=== PATIENT | male | born 1985 | race American Indian/Alaskan Native ===

== ENCOUNTER 2019-06-05 04:05 | Emergency (ER) | payer SELFPAY ==
[2019-06-05] MEDS ORDERED: ASPIRIN 325 MG TAB PO ONE (04:23)
[2019-06-05 05:03] LABS: Basophils # (Auto) 0.1 K/mm3 (0.0-0.1); Eosinophils # (Auto) 0.1 K/mm3 (0.0-0.4); Eosinophils % (Auto) 1.3 % (0.0-4.3); Lymphocytes # (Auto) 0.5 K/mm3 (1.2-5.4); Lymphocytes % (Auto) 8.7 % (13.4-35.0); Mean Corpuscular HGB Conc 36 % (32-34); Mean Corpuscular Volume 88 fl (84-94); Monocytes # (Auto) 0.9 K/mm3 (0.0-0.8); Monocytes % (Auto) 14.8 % (0.0-7.3); Platelet Count 228 K/mm3 (140-440); Red Blood Count 4.96 M/mm3 (3.65-5.03); Red Cell Distribution Width 13.2 % (13.2-15.2)
[2019-06-05 05:04] LABS: Hematocrit 43.4 % (35.5-45.6); Hemoglobin 15.6 gm/dl (11.8-15.2)
--- NOTE | 2019-06-05 05:20 | XRay Report ---
CHEST 1 VIEW INDICATION: Chest Pain. COMPARISON: FINDINGS: SUPPORT DEVICES: None. HEART / MEDIASTINUM: No significant abnormality. LUNGS / PLEURA: No significant pulmonary or pleural abnormality. No pneumothorax. ADDITIONAL FINDINGS: IMPRESSION: 1. No acute cardiopulmonary disease Signer Name: Benjamin Mckeon MD Signed: 06/05/2019 5:15 AM Workstation Name: [id number]
[2019-06-05 05:31] LABS: BUN/Creatinine Ratio 8; Blood Urea Nitrogen 9 mg/dL (9-20); Calcium 9.5 mg/dL (8.4-10.2); Hemolysis Index 6
[2019-06-05] MEDS ORDERED: ASPIRIN 325 MG TAB ONE (06:28)
[2019-06-05] MEDS ORDERED: FAMOTIDINE 20 MG/2 ML INJ IV ONE (07:13)
[2019-06-05] MEDS ORDERED: diphenhydrAMINE 50 MG/ML VIAL IV ONE (07:13)
[2019-06-05] MEDS ORDERED: SODIUM CHLORIDE 0.9% 1000 ML 2,000 ML IV ONE (07:13)
--- NOTE | 2019-06-05 07:15 | Emergency Department Report ---
ED General Adult HPI - General Chief complaint: Chest Pain Stated complaint: FOOD POISONING Time Seen by Provider: 06/05/19 06:08 Source: patient, RN notes reviewed Mode of arrival: Ambulatory Limitations: No Limitations - History of Present Illness Initial comments: During the history and physical examination, I am stereotype molder and escorted by Dinah Mathias, machine shop repair technician. The patient is a 33-year-old gentleman. He is not known to myself previously. He reports that he does not have a primary care doctor, and he also reports that he does not have any chronic medical conditions, and he denies tobacco and smoke product consumption. He presents to the ER with multiple complaints. His first complaint is diarrhea. It started 4 days ago. He describes his diarrhea as brown and red. In the past 24 hours, he has had 3 episodes of diarrhea. There is no fevers that he is aware of, no nausea, no vomiting, no abdominal pain. He recently returned from [facility]. To the best of his recollection, he did not encounter any sick people or sick contacts in this country, and he did not encounter anyone with any respiratory symptoms that he is aware of. He has not endorsed any hematemesis. His next complaint is chest pressure and pain. It started at 3:00 this morning. It is now resolved. It did not radiate to the back, arms or neck. There is no vomiting, diaphoresis, or shortness of breath. There is no endorsement of posterior leg pain and/or leg swelling. There is no recent aspirin consumption. There is no family history of heart dis ease or DVT, pulmonary embolism that he is aware of. He has a final complaint of right-sided ear fullness and discomfort. There is no tinnitus, there is no vertigo, there is no subjective change in auditory acuity. This has been going on for the past couple of days. -: days(s) Location: chest Severity scale (0 -10): 8 Quality: other Consistency: other Improves with: other Worsens with: other Associated Symptoms: other - Related Data Previous Rx's Medication Instructions Recorded Last Taken Type Acetaminophen [Non-Aspirin Extra 500 mg PO Q6HR PRN #30 tablet 06/05/19 Unknown Rx Strength] Albuterol Sulfate [Proair 90 mcg IH Q4HR PRN #2 aer.pow.ba 06/05/19 Unknown Rx Respiclick] Famotidine [Pepcid] 20 mg PO BID #60 tablet 06/05/19 Unknown Rx Ondansetron [Zofran Odt] 4 mg PO Q8HR PRN #20 tab.rapdis 06/05/19 Unknown Rx Potassium Chloride 20 meq PO QDAY #14 packet 06/05/19 Unknown Rx Allergies Allergy/AdvReac Type Severity Reaction Status Date / Time No Known Allergies Allergy Verified 06/05/19 06:35 ED Review of Systems ROS: Stated complaint: FOOD POISONING Other details as noted in HPI Constitutional: denies: fever Eyes: denies: eye discharge ENT: other (See history of present illness) Respiratory: denies: shortness of breath Cardiovascular: chest pain Gastrointestinal: diarrhea. denies: abdominal pain, nausea, vomiting, constipation, hematemesis, melena, hematochezia Genitourinary: as per HPI Musculoskeletal: as per HPI Skin: as per HPI Neurological: as per HPI Psychiatric: as per HPI Hematological/Lymphatic: as per HPI ED Past Medical Hx - Past Medical History Previous Medical History?: No - Surgical History Past Surgical History?: No - Social History Smoking Status: Never Smoker Substance Use Type: None - Medications Home Medications: Home Medications Medication Instructions Recorded Confirmed Last Taken Type Acetaminophen [Non-Aspirin Extra 500 mg PO Q6HR PRN #30 tablet 06/05/19 Unknown Rx Strength] Albuterol Sulfate [Proair 90 mcg IH Q4HR PRN #2 aer.pow.ba 06/05/19 Unknown Rx Respiclick] Famotidine [Pepcid] 20 mg PO BID #60 tablet 06/05/19 Unknown Rx Ondansetron [Zofran Odt] 4 mg PO Q8HR PRN #20 tab.rapdis 06/05/19 Unknown Rx Potassium Chloride 20 meq PO QDAY #14 packet 06/05/19 Unknown Rx ED Physical Exam - General Limitations: No Limitations General appearance: alert, in no apparent distress - Head Head exam: Present: atraumatic, normocephalic - Eye Eye exam: Present: normal appearance, EOMI. Absent: nystagmus - ENT ENT exam: Present: normal exam, normal orophraynx, mucous membranes moist, normal external ear exam, other (Left tympanic membrane is clear. Right tympanic membrane is obscured by wax and cerumen. There is no mastoid tenderness) - Neck Neck exam: Present: normal inspection, full ROM. Absent: tenderness, meningismus - Respiratory Respiratory exam: Present: normal lung sounds bilaterally. Absent: respiratory distress - Cardiovascular Cardiovascular Exam: Present: normal rhythm, tachycardia, normal heart sounds. Absent: systolic murmur, diastolic murmur, rubs, gallop - GI/Abdominal GI/Abdominal exam: Present: soft, normal bowel sounds. Absent: distended, tenderness, guarding, rebound, rigid, pulsatile mass - Rectal Rectal exam: Present: deferred - Extremities Exam Extremities exam: Present: normal inspection, full ROM, other (2+ pulses noted in the bilateral upper and lower extremities. There is no palpable cord. negative Homans sign. Muscular compartments are soft. The pelvis is stable.). Absent: pedal edema, calf tenderness - Back Exam Back exam: Present: normal inspection, full ROM. Absent: tenderness, CVA tenderness (R), CVA tenderness (L), paraspinal tenderness, vertebral tenderness - Neurological Exam Neurological exam: Present: alert, other (There is no facial droop. The tongue is midline. Extraocular movements are intact bilaterally. There is 5 out of 5 strength in bilateral upper and lower extremities. Sensation is intact to light touch bilateral upper and lower extremities. There is a normal gait.). Absent: motor sensory deficit - Psychiatric Psychiatric exam: Present: anxious - Skin Skin exam: Present: warm, dry, intact, normal color. Absent: rash ED Course Vital Signs 06/05/19 06/05/19 06/05/19 04:11 05:00 05:01 Temperature 99.1 F Pulse Rate 122 H 109 H Respiratory 20 30 H 18 Rate Blood Pressure 133/85 127/76 Blood Pressure [Left] O2 Sat by Pulse 96 98 100 Oximetry 06/05/19 06/05/19 06/05/19 06:00 07:00 08:00 Temperature Pulse Rate 115 H 117 H 94 H Respiratory 28 H 33 H 29 H Rate Blood Pressure 120/72 120/73 110/67 Blood Pressure [Left] O2 Sat by Pulse 95 Oximetry 06/05/19 06/05/19 06/05/19 09:01 09:31 09:35 Temperature Pulse Rate 102 H 85 84 Respiratory 19 18 18 Rate Blood Pressure 96/61 Blood Pressure 101/65 101/56 [Left] O2 Sat by Pulse 96 100 100 Oximetry 06/05/19 06/05/19 10:16 10:44 Temperature 100.1 F H Pulse Rate 101 H 101 H Respiratory 18 Rate Blood Pressure 106/59 Blood Pressure 106/65 [Left] O2 Sat by Pulse 100 Oximetry - Reevaluation(s) Reevaluation #1: 06/05/19 07:58 Differential diagnosis, including but not limited to: GERD, gastritis, hiatal hernia, pneumonia, acute coronary syndrome, pulmonary embolism, enteritis, otitis media, cerumen impaction Assessment and plan: 33-year-old gentleman with 3 complaints Complaint #1, diarrhea. Appears to have resolved while in the emergency room, or prior to arrival. Patient is afebrile, with improving tachycardia, at the moment, heart rate is 103 bpm. Laboratory studies are reviewed and appreciated. Not suggestive of GI bleed, mildly hypokalemic. This can be treated supportively and symptomatically. We would not initiate antibiotic therapy at this time, he is not had diarrhea that we have witnessed. He can follow-up with his primary care doctor for this. We will replete his potassium and give IV fluids. Complaints #2, chest pain. Tachycardia improving, not tachypneic, hypoxic, low risk by Wells criteria for pulmonary embolism. However, given recent 15-hour airplane trip to [place], we will send d-dimer to risk stratify patient for pulmonary embolism. Troponin negative x1, EKG fairly unremarkable, patient at low risk for major adverse cardiac event as per heart score heart score: 1 points Low Score (0-3 points) Risk of MACE of 0.9-1.7%. edgar score: 0 points 5% risk at 14 days of: all-cause mortality, new or recurrent IN, or severe recurrent ischemia requiring urgent revascularization. Complaints #3, right-sided sensation of ear fullness and discomfort. Nursing team has been instructed to clean out external auditory canal. We will reassess. This is very unlikely to be an atypical presentation of novel coronavirus 19. However, given recent travel to [place], we have submitted the covid19 persons under investigation form to Department of Health, and we will defer to them to further follow this up. In the unlikely event that the patient has an atypical presentation of coronavirus, he does not meet criteria for hospitalization, and he can self quarantine at home if necessary. Reevaluation #2: 06/05/19 10:27 Troponin negative x2. Tachycardia resolved. EKG unchanged x2. Initial coagula tion parameters appear to be abnormal, suspect laboratory error. Repeat PT/INR, d-dimer have been ordered. Reevaluation #3: 06/05/19 13:20 CT scan of the chest is negative for acute disease. In 9 hours, patient has not had any witnessed episodes of diarrhea. After a right sided external auditory canal was appropriately irrigated, his exam is not consistent with otitis media. The patient is feeling improved. Tolerating oral feeds at this time. After appropriate medical work-up and evaluation in the emergency room, he does not appear to have an emergent medical condition present that requires hospitalization. Low-grade temperature and tachycardia have resolved. We have discussed appropriate hand hygiene, self isolation, supportive and symptomatic care, and close follow-up with outpatient primary care. He has verbalized understanding and endorses readiness for discharge. ED Medical Decision Making - Lab Data Result diagrams: 06/05/19 04:45 06/05/19 04:45 Vital Signs 06/05/19 06/05/19 06/05/19 04:11 05:00 05:01 Temperature 99.1 F Pulse Rate 122 H 109 H Respiratory 20 30 H 18 Rate Blood Pressure 133/85 127/76 O2 Sat by Pulse 96 98 100 Oximetry 06/05/19 06:00 Temperature Pulse Rate 115 H Respiratory 28 H Rate Blood Pressure 120/72 O2 Sat by Pulse Oximetry Lab Results 06/05/19 06/05/19 Range/Units 04:45 04:45 WBC 6.1 (4.5-11.0) K/mm3 RBC 4.96 (3.65-5.03) M/mm3 Hgb 15.6 H (11.8-15.2) gm/dl Hct 43.4 (35.5-45.6) % MCV 88 (84-94) fl MCH 31 (28-32) pg MCHC 36 H (32-34) % RDW 13.2 (13.2-15.2) % Plt Count 228 (140-440) K/mm3 Lymph % (Auto) 8.7 L (13.4-35.0) % [place] % (Auto) 14.8 H (0.0-7.3) % Eos % (Auto) 1.3 (0.0-4.3) % Baso % (Auto) 2.0 H (0.0-1.8) % Lymph # 0.5 L (1.2-5.4) K/mm3 [place] # 0.9 H (0.0-0.8) K/mm3 Eos # 0.1 (0.0-0.4) K/mm3 Baso # 0.1 (0.0-0.1) K/mm3 Seg Neutrophils % 73.2 H (40.0-70.0) % Seg Neutrophils # 4.5 (1.8-7.7) K/mm3 Sodium 138 (137-145) mmol/L Potassium 3.3 L (3.6-5.0) mmol/L Chloride 97.1 L (98-107) mmol/L Carbon Dioxide 25 (22-30) mmol/L Anion Gap 19 mmol/L BUN 9 (9-20) mg/dL Creatinine 1.2 (0.8-1.5) mg/dL Estimated GFR > 60 ml/min BUN/Creatinine Ratio 8 % Glucose 121 H (75-100) mg/dL Calcium 9.5 (8.4-10.2) mg/dL Troponin T < 0.010 (0.00-0.029) ng/mL - EKG Data -: EKG Interpreted by Ut EKG shows normal: sinus rhythm Rate: tachycardia - EKG Data When compared to previous EKG there are: previous EKG unavailable 06/05/19 08:03 There is no prior EKG available for comparison. Sinus rhythm, tachycardia, QTC 439 ms, incomplete right bundle branch block, atrial enlargement, abnormal EKG, no prior for comparison, not a STEMI. - Radiology Data Radiology results: report reviewed, image reviewed Print Report Referring Physician: ED DOC Patient Name: TONY GAO Date of : 1985 Sex: Male Report Date: 2019-06-05 Report Status: Finalized Findings [facility] [address] [place] [address] XRay Report Signed Patient: TONY GAO MR#: [id number] : 1985 ct:[id number] Age/Sex: 33 / M ADM Date: 06/05/19 Loc: ED Attending Dr: Ordering Physician: ED DOC, Date of Service: 06/05/19 Procedure(s): XR chest 1V ap Accession Number(s): [id number] cc: ED MD TAWANNA Fluoro Time In Minutes: CHEST 1 VIEW INDICATION: Chest Pain. COMPARISON: FINDINGS: SUPPORT DEVICES: None. HEART / MEDIASTINUM: No significant abnormality. LUNGS / PLEURA: No significant pulmonary or pleural abnormality. No pneumothorax. ADDITIONAL FINDINGS: IMPRESSION: 1. No acute cardiopulmonary disease Signer Name: Benjamin Mckeon MD Signed: 06/05/2019 5:15 AM Workstation Name: [id number] Transcribed By: BRAYAN Dictated By: Benjamin Mckeon MD Electronically Authenticated By: Benjamin Mckeon MD Signed Date/Time: 06/05/19514 DD/ 4 Critical care attestation.: If time is entered above; I have spent that time in minutes in the direct care of this critically ill patient, excluding procedure time. ED Disposition Clinical Impression: History of diarrhea, History of chest pain, Hypokalemia Disposition: -01 TO HOME OR SELFCARE Is pt being admited?: No Does the pt Need Aspirin: No Condition: Stable Additional Instructions: Please make certain to wash hands with soap and water copiously and often. Advance diet as tolerated. Minimize consumption of heavy and/or spicy foods. Minimize consumption of Motrin, ibuprofen, Naprosyn, Aleve, the patient may take once every 6 hours with food, as needed for pain. This can be alternated with the prescribed Tylenol. Recommend that patient participate in self isolation/social distancing, he should follow-up with a primary care doctor within 3 to 5 days for repeat checkup/evaluation. Do not take metformin medication for the next 2 days if patient takes this medication. Please make certain to drink plenty of fluids, and consume plenty of fiber, vegetables, lean protein. Please return to the emergency room right away with new, worsened or different symptoms, or symptoms not present on the initial emergency room evaluation. Referrals: DEVIN SMITH MD [Staff Physician] - 3-5 Days [facility] [Provider Group] - 3-5 Days [facility] [Provider Group] - 3-5 Days
[2019-06-05] MEDS: SUCRALFATE 1 GM TAB PO ONE ×2 (07:50→09:41)
[2019-06-05] MEDS ORDERED: POTASSIUM CHLORIDE ER 20 MEQ TAB PO ONE (07:55)
[2019-06-05] MEDS ORDERED: DOCUSATE SODIUM 100 MG/10 ML ORAL LIQD PO ONE (08:15)
[2019-06-05] MEDS ORDERED: ONDANSETRON 4 MG/2 ML INJ IV ONE (09:03)
[2019-06-05 09:19] LABS: INR > 17.67 (0.87-1.13)
[2019-06-05 09:22] LABS: Albumin 3.8 g/dL (3.9-5); Bilirubin,Direct 0.2 mg/dL (0-0.2)
[2019-06-05] MEDS ORDERED: ACETAMINOPHEN 325 MG/10.15 ML ORAL LIQD UNIT DOSE PO ONE (10:34)
[2019-06-05 11:07] LABS: INR 1.06 (0.87-1.13)
[2019-06-05 11:08] LABS: Partial Thromboplastin Time 32.7 Sec. (24.2-36.6)
--- NOTE | 2019-06-05 12:58 | Cat Scan Report ---
CTA CHEST WITH IV CONTRAST INDICATION: cp + d dimer, tachycardia low grade fever cough x 5 days 100 ml omni 350. TECHNIQUE: Axial CT images were obtained through the chest after injection of IV contrast. 3 plane MIP reconstru ctions were produced. All CT scans at this location are performed using CT dose reduction for ALARA b y means of automated exposure control. COMPARISON: None available. FINDINGS: Pulmonary Arteries: No pulmonary emboli. Thoracic Aorta: No acute abnormality. Heart: Normal. Lungs: No acute air space or interstitial disease. Pleura: No pleural effusion. No pneumothorax. Lymph Nodes: No significant adenopathy. Additional Findings: None. Upper Abdomen: No acute findings. Skeletal Structures: No significant osseous abnormality. IMPRESSION: 1. No CT evidence for pulmonary embolism. 2. No acute findings. Signer Name: Sergey Chou MD Signed: 06/05/2019 12:53 PM Workstation Name: [id number]
[2019-06-05 13:54] VITALS: BP 124/60
== END 2019-06-05 13:54 | disposition home or self-care (01) ==
LOC: ED 04:05
DX: E87.6 Hypokalemia (principal); R07.9 Chest pain, unspecified; R19.7 Diarrhea, unspecified; Z79.899 Other long term (current) drug therapy
CPT/HCPCS: 36415; 71045; 71275; 80048; 80076; 82550; 83735; 84484; 85025; 85379; 85610; 85730; 93005; 93010; 96374; 96375; 99285; J1200; J2405; J7030; Q9967